=== PATIENT | male | born 1955 | race Caucasian/White ===

== ENCOUNTER 2021-07-17 06:55 | Observation (INO) ==
--- NOTE | 2021-06-14 15:29 | PAT Medication Instructions ---
Medication Instructions Date of Service June 14, 2021 Home Medications albuterol sulfate 90 mcg/actuation aerosol inhaler 2 inh INHALATION QID PRN cholecalciferol (vitamin D3) 10 mcg (400 unit) capsule (Vitamin D3) 20 mcg PO QPM fluticasone furoate 100 mcg-vilanterol 25 mcg/dose inhalation powder (Breo Ellipta) 1 inh INHALATION QAM furosemide 20 mg tablet 20 mg PO BID levothyroxine 200 mcg tablet 200 mcg PO QAM montelukast 10 mg tablet 10 mg PO QAM multivitamin 1 tab PO QAM naproxen sodium 220 mg capsule (Aleve) 440 mg PO BID PRN spironolactone 25 mg tablet 25 mg PO QAM testosterone 20.25 mg/1.25 gram (1.62 %) transdermal gel pump 2 pump TOPICAL QAM ASK your surgeon for instructions naproxen sodium 220 mg capsule (Aleve) 440 mg PO BID PRN DO NOT take the morning of surgery furosemide 20 mg tablet 20 mg PO BID montelukast 10 mg tablet 10 mg PO QAM multivitamin 1 tab PO QAM spironolactone 25 mg tablet 25 mg PO QAM testosterone 20.25 mg/1.25 gram (1.62 %) transdermal gel pump 2 pump TOPICAL QAM Take morning of surgery With a small sip of water, OTHERWISE NOTHING TO EAT OR DRINK AFTER MIDNIGHT: albuterol sulfate 90 mcg/actuation aerosol inhaler 2 inh INHALATION QID PRN (use if needed; please bring rescue inhaler with you to hospital day of surgery if possible) fluticasone furoate 100 mcg-vilanterol 25 mcg/dose inhalation powder (Breo Ellipta) 1 inh INHALATION QAM levothyroxine 200 mcg tablet 200 mcg PO QAM Take evening before surgery albuterol sulfate 90 mcg/actuation aerosol inhaler 2 inh INHALATION QID PRN (if needed) furosemide 20 mg tablet 20 mg PO BID Other Notes If you have any questions please call us at [phone] or [phone] or [phone] or [phone]
--- NOTE | 2021-06-18 10:09 | Anesthesiology Consultation ---
Date of Service June 18, 2021 History Surgery Operation Date: 07/17/21 09:25 Proposed Procedures p Right Total Knee Arthroplasty - Girma Fournier DO Height/Weight Height: 5 ft 9 in Weight: 138.346 kg Allergies Allergy/AdvReac Type Severity Reaction Status Date / Time No Known Allergies Allergy Verified 06/13/21 08:28 Medications Home Medications Medication Instructions Recorded Confirmed Last Taken albuterol sulfate 90 mcg/actuation 2 inh INHALATION QID PRN 06/13/21 06/13/21 Unknown aerosol inhaler cholecalciferol (vitamin D3) 10 20 mcg PO QPM 06/13/21 06/13/21 Unknown mcg (400 unit) capsule (Vitamin D3) fluticasone furoate 100 1 inh INHALATION QAM 06/13/21 06/13/21 Unknown mcg-vilanterol 25 mcg/dose inhalation powder (Breo Ellipta) furosemide 20 mg tablet 20 mg PO BID 06/13/21 06/13/21 Unknown levothyroxine 200 mcg tablet 200 mcg PO QAM 06/13/21 06/13/21 Unknown montelukast 10 mg tablet 10 mg PO QAM 06/13/21 06/13/21 Unknown multivitamin 1 tab PO QAM 06/13/21 06/13/21 Unknown naproxen sodium 220 mg capsule 440 mg PO BID PRN 06/13/21 06/13/21 Unknown (Aleve) spironolactone 25 mg tablet 25 mg PO QAM 06/13/21 06/13/21 Unknown testosterone 20.25 mg/1.25 gram 2 pump TOPICAL QAM 06/13/21 06/13/21 Unknown (1.62 %) transdermal gel pump Past Medical History Medical History Asthma Fluid retention Legs > on diuretics GERD (gastroesophageal reflux disease) Controlled Hypothyroidism Sleep apnea CPAP Patient denies h/o stroke, seizures, heart attack, heart failure, DM, HTN, blood clots or blood transfusions. Past Family History Family History Other No known health problems Past Surgical History Surgical History History of arthroscopy RIGHT SHOULDER History of colonoscopy History of herniorrhaphy History of repair of rotator cuff LEFT History of tooth extraction Social History Smoking Status: Current every day smoker Smoking cigarettes per day: 20 CIGS A DAY Do You Dip or Chew Tobacco: No Hx Alcohol Use: Yes Alcohol type: beer Alcohol Intake Frequency Comment: RARELY Hx Substance Use: No Review of Systems Patient denies chest pain, shortness of breath, dyspnea on exertion, snoring, witnessed apneas, reflux, fever, chills, cough, wheezing, or palpitations.
--- NOTE | 2021-06-18 10:31 | Anesthesiology Consultation ---
Date of Service June 18, 2021 Assessment & Plan (1) Encounter for pre-operative examination: - COVID screening: Per assessment on 06/18: No known COVID-19 positive contacts or current COVID-19 related symptoms. Travel screen negative. Patient yohannes ellington. Surgeon arranging preop COVID testing. Awaiting results. - Check BSG AM DOS - Post-operative course: Per OR booking comments, plan for SDA/needs bed. Patient seen at [facility] 06/18. He states that surgeon told him he would be going home the same day. 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 Confirmed with Ruth Ann at surgeon's office that patient will not be done through the outpatient pathway. She states she will contact patient to discuss with patient further. Chart Review Chart Review: Acceptable Risk for Surgery and Patient seen in Pre Admission Testing Teaching & Discussion Pre-Anesthesia Teaching/Discussion Notes: Instructed NPO after midnight before surgery,except medications with 15 cc of water. Medication instructions provided according to the [facility] guidelines. History Surgery Operation Date: 07/17/21 09:25 Proposed Procedures p Right Total Knee Arthroplasty - Girma Fournier DO Height/Weight Height: 5 ft 9 in Weight: 139.5 kg Allergies Allergy/AdvReac Type Severity Reaction Status Date / Time No Known Allergies Allergy Verified 06/13/21 08:28 Medications Home Medications Medication Instructions Recorded Confirmed Last Taken albuterol sulfate 90 mcg/actuation 2 inh INHALATION QID PRN 06/13/21 06/13/21 Unknown aerosol inhaler cholecalciferol (vitamin D3) 10 20 mcg PO QPM 06/13/21 06/13/21 Unknown mcg (400 unit) capsule (Vitamin D3) fluticasone furoate 100 1 inh INHALATION QAM 06/13/21 06/13/21 Unknown mcg-vilanterol 25 mcg/dose inhalation powder (Breo Ellipta) furosemide 20 mg tablet 20 mg PO BID 06/13/21 06/13/21 Unknown levothyroxine 200 mcg tablet 200 mcg PO QAM 06/13/21 06/13/21 Unknown montelukast 10 mg tablet 10 mg PO QAM 06/13/21 06/13/21 Unknown multivitamin 1 tab PO QAM 06/13/21 06/13/21 Unknown naproxen sodium 220 mg capsule 440 mg PO BID PRN 06/13/21 06/13/21 Unknown (Aleve) spironolactone 25 mg tablet 25 mg PO QAM 06/13/21 06/13/21 Unknown testosterone 20.25 mg/1.25 gram 2 pump TOPICAL QAM 06/13/21 06/13/21 Unknown (1.62 %) transdermal gel pump Past Medical History Medical History (Updated 06/18/21 @ 11:08 by Yris Lam) Asthma Stable Diabetes Diet controlled (per PCP office visit note) Fluid retention Legs > on diuretics GERD (gastroesophageal reflux disease) Controlled Hypothyroidism Morbid obesity Sleep apnea CPAP (compliant) Exercise / Class Metabolic Activity III < 4 Walking/Shop/Light housework (one FS (no CP, occ SOB)) Past Family History Family History Other No known health problems Past Surgical History Surgical History History of arthroscopy RIGHT SHOULDER History of colonoscopy History of herniorrhaphy History of repair of rotator cuff LEFT History of tooth extraction Past Anesthesia History No Family Hx of Anesthesia Complications and Other ("slow to wake" ) History of PONV No Hx of PONV and No Hx of Motion Sickness Social History Smoking Status: Current every day smoker Smoking cigarettes per day: 20 CIGS/DAY Do You Dip or Chew Tobacco: No Hx Alcohol Use: Yes Alcohol type: beer Alcohol Intake Frequency Comment: RARE Hx Substance Use: No Review of Systems Patient denies chest pain, shortness of breath, fever, chills, cough, wheezing, palpitations. Physical Exam Vital Signs VITALS BP 127/75 P 64 TEMP 98.6 SP02 95%RA RESP 16 PHYSICAL Full cervical extension range of motion. Full TMJ range of motion. TMD 3 finger breaths Mallampati Score 2 Dentition: edentulous Lungs: clear throughout to auscultation Cardiac: regular rate and rhythm, no murmurs noted Spine: normal Carotid arteries: negative bruit Extremities: no edema Lab Results Anesthesia Preop Results Results Anesthesia Widget: WBC 8.47 K/uL (4.8-10.8) 06/18/21 Hgb 16.1 g/dL (14.0-18.0) 06/18/21 Hct 48.4 % (42-52) 06/18/21 Plt 378 K/uL (130-400) 06/18/21 PT 10.9 Seconds (9.0-12.0) 06/18/21 PTT 32.3 Seconds (21.0-31.0) H 06/18/21 INR 1.0 (0.9-1.1) 06/18/21 HA1c 5.9 % (4.5-5.6) H 06/18/21 Urine Color Yellow 06/18/21 Urine Appearance Clear (Clear) 06/18/21 Urine pH 7.0 (4.5-7.5) 06/18/21 Urine Specific [place] 1.005 (1.000-1.030) 06/18/21 Urine Protein Negative (Negative) 06/18/21 Urine Glucose (UA) Negative (Negative) 06/18/21 Urine Ketones Negative (Negative) 06/18/21 Urine Blood Negative (Negative) 06/18/21 Urine Nitrite Negative (Negative) 06/18/21 Urine Bilirubin Negative (Negative) 06/18/21 Urine Urobilinogen Negative (Negative) 06/18/21 Urine Leukocyte Esterase Negative (Negative) 06/18/21 Blood Type B Positive 06/18/21 Antibody Screen NEGATIVE 06/18/21 Testing Electrocardiogram Date: 06/18/21 Findings: + NSR @ (63) Echocardiogram LVEF 55-60%. Mild LVH. Mild TR. Borderline pulmonary hypertension. Estimated PASP 39 mmHg. Dilated IVC, consistent with increased right atrial pressure. Stress Test Date: 12/07/18 Type: nuclear Normal regadenoson SPECT myocardial perfusion study, indicating that the probability of hemodynamically significant underlying CAD being present is low. Low probability of obstructive CAD, ischemia, infarct. 57% MPHR. Post-rest LVEF 78%. Other Testing CT Chest (05/28/21): Interval resolution of right lung base atelectasis (comparison study 01/02/2020). Mild fibrotic changes at the lung base. No suspicious pulmonary nodule. Patent large airways.
--- NOTE | 2021-06-28 08:17 | History & Physical Report ---
Date of Service June 28, 2021 date of surgery: 07/17/21 Procedure: Right Total Knee Arthroplasty Surgeon: Girma Fournier Assessment & Plan (1) Arthritis of right knee: Plan: Further care discussed with patient and at this point in time would like to proceed with a right total knee replacement. Plan on discharge will be home with home health physical therapy. DVT prophylaxiswith TEDs, SCDs and will also place on aspirin 81 mg p.o. b.i.d. for a month postop. Patient will have follow up appointment in our office two weeks post op for staple/suture removal and re-evaluation. Patient otherwise has no other questions or concerns. The risks and benefits have been discussed including, but not limited to, risk of infection, nerve injury, stiffness, loss of motion, failure to improve, etc. Reasonable outcomes and options of treatment were discussed. An explanation of appropriate alternatives to the procedure that may be advantageous were discussed and their risks and benefits, as well as the risks and benefits of not proceeding with treatment. I offered to answer any additional inquiries concerning the treatment involved. All the patient's questions were answered. The patient is agreeable, understanding of the treatment plan and alternatives, and wishes to proceed with the treatment plan. History of Present Illness Chief Complaint: Right knee pain Primary Care Provider: Philipp Fry MD Joao is a 65 year old who complains of right knee pain, presents for pre-op evaluation prior to a right total knee replacement by Dr Fournier at [facility]. He complains of pain, decreased range of motion, instability and stiffness in his right knee. His pain is rated at 8/10 and currently the patient states that the symptoms are moderate-severe. His pain is described as aching, sharp and throbbing. Prior NSAIDs include IBU and Aleve. Allergies Allergy/AdvReac Type Severity Reaction Status Date / Time No Known Allergies Allergy Verified 06/13/21 08:28 Home Medications Medication Instructions Recorded Confirmed Type albuterol sulfate 90 mcg/actuation 2 inh INHALATION QID PRN 06/13/21 06/13/21 History aerosol inhaler cholecalciferol (vitamin D3) 10 20 mcg PO QPM 06/13/21 06/13/21 History mcg (400 unit) capsule (Vitamin D3) fluticasone furoate 100 1 inh INHALATION QAM 06/13/21 06/13/21 History mcg-vilanterol 25 mcg/dose inhalation powder (Breo Ellipta) furosemide 20 mg tablet 20 mg PO BID 06/13/21 06/13/21 History levothyroxine 200 mcg tablet 200 mcg PO QAM 06/13/21 06/13/21 History montelukast 10 mg tablet 10 mg PO QAM 06/13/21 06/13/21 History multivitamin 1 tab PO QAM 06/13/21 06/13/21 History naproxen sodium 220 mg capsule 440 mg PO BID PRN 06/13/21 06/13/21 History (Aleve) spironolactone 25 mg tablet 25 mg PO QAM 06/13/21 06/13/21 History testosterone 20.25 mg/1.25 gram 2 pump TOPICAL QAM 06/13/21 06/13/21 History (1.62 %) transdermal gel pump Past Med/Surg History Medical History Asthma Stable Diabetes Diet controlled (per PCP office visit note) Fluid retention Legs > on diuretics GERD (gastroesophageal reflux disease) Controlled Hypothyroidism Morbid obesity Sleep apnea CPAP (compliant) Surgical History History of arthroscopy RIGHT SHOULDER History of colonoscopy History of herniorrhaphy History of repair of rotator cuff LEFT History of tooth extraction Family History Other No known health problems Social History Smoking Status: Current every day smoker Cigarettes Per Day: 20 CIGS/DAY; Second Hand Exposure: No; Hx Alcohol Use: Yes Alcohol type: beer Hx Substance Use: No Preferred Language: Turkmen Communication Ability: Effective Clearance Center Manager Required: No Beliefs That Will Affect Care: None Current Living Situation: Spouse current occupational status: employed Feels Safe at Home: Yes Assistive Devices: Glasses Review of Systems Review of Systems: All systems reviewed & are unremarkable except as noted in HPI & below Constitutional: no fever, no chills and no sweats Respiratory: no cough and no dyspnea Cardiovascular: no chest pain, no dyspnea and no orthopnea Gastrointestinal: no abdominal pain, no nausea and no vomiting Musculoskeletal: as per Subjective / HPI Physical Exam Physical Exam: HT: 5ft 9in WT: 139.5kg Constitutional: WD/WN, vitals as above no acute distress Respiratory: normal respiratory effort, lungs clear to auscultation no respiratory distress, no labored breathing and does not use accessory muscles Cardiovascular: RRR, no murmur, no edema Gastrointestinal (Abdomen): normal bowel sounds, soft, nontender, no hepatosplenomegaly Musculoskeletal: Knee: + knee abnormal to inspection (RIGHT KNEE: ), + effusion (+1 effusion), + limited ROM of knee (ROM 0/3/110), + knee ROM with crepitation, + joint line tenderness (medial joint line) and + Fareed's sign positive; no deformity, no skin erythema, no ecchymosis, no valgus laxity, no varus laxity, anterior drawer test negative, Petey's sign negative and pivot shift test negative Results & Data Results & Data ([facility]) Diagnostic Findings Right Knee X-ray: Right knee series showing advanced degenerative changes to the right knee, narrowing of the medial compartment and patello-femoral joint with patellar spurring noted, findings showing joint space narrowing of the medial compartment and patello-femoral joint, osteophyte formation and subchondral sclerosis noted. overall varus alignment. no acute bony pathology noted.
[~2021-07-17 06:55] MED LIST: ACETAMINOPHEN 500 MG TAB PO SCH; BUPIVACAINE 0.5 % 5 MG/1 ML PF 10ML VIAL ONE; CeleBREX 200 MG CAP PO SCH; FAMOTIDINE 20 MG TAB PO SCH; GABAPENTIN 300 MG CAP PO SCH; LR 500ML BOLUS, THEN 15ML/HR IV SCH; METOCLOPRAMIDE HCL 10 MG TABLET PO SCH; ROPIVACAINE 0.5% 5 MG/ML 30 ML VIAL ONE; ROPIVACAINE 0.5% HCL/PF 150 MG, BUPIVACAINE 0.75% MPF 20 ML, EPINEPHrine 30MG/30ML (OR ... INSTIL SCH; TRANEXAMIC ACID 1,000 MG **IV Intra-op IV SCH; TRANEXAMIC ACID 1,000 MG **IV Pre-op IV SCH; dexAMETHasone 4 MG TAB PO SCH; oxyCODONE HCL 10 MG TABCR (OxyCONTIN) PO SCH
[2021-07-17] MEDS ORDERED: MIDAZOLAM HCL 1 MG/ML 2ML VIAL ONE ×3 (07:55→09:59)
[2021-07-17] MEDS ORDERED: PROPOFOL IV EMULSION 10 MG/ML 20 ML VIAL IV ONE (07:59)
--- NOTE | 2021-07-17 08:46 | History & Physical Bridge Note ---
Date of Service July 17, 2021 History & Physical Bridge Note I have examined the patient, reviewed the History & Physical and in the interval since the performance of the History & Physical I have noted the following changes of clinical significance: no changes noted
[2021-07-17] MEDS ORDERED: ORTHO JOINT ANESTHETIC ONE (09:10)
[2021-07-17] MEDS ORDERED: ATROPINE SULFATE 0.1 MG/ML 10ML SYR IV PRN (09:25)
[2021-07-17] MEDS ORDERED: ePHEDrine sulfate 50 MG/ML AMP IV PRN (09:25)
[2021-07-17] MEDS ORDERED: HYDROmorphone INJ 2 MG/ML SYR/VIAL IV PRN (09:25)
[2021-07-17] MEDS ORDERED: fentaNYL citrate 100 MCG/2 ML VIAL IV PRN (09:25)
[2021-07-17] MEDS ORDERED: KETAMINE 50 MG/5 ML SYRINGE ONE (10:05)
--- NOTE | 2021-07-17 11:04 | Operative Report ---
Post Operative Report Pre & Post Diagnosis Operation Date: 07/17/21 09:20 Pre-Op Diagnosis: Right Knee Osteoarthritis Post-Op Diagnosis: Right Knee Osteoarthritis with morbid obesity BMI 44.3 I identified the patient and participated in the time-out.: Yes Procedure Operation Date: 07/17/21 09:20 Actual Procedures p Right Total Knee Arthroplasty(Right) utilizing [employer] Nephew journey 2 patient matched total knee arthroplasty size femur 6 tibia 6 insert 13 constrained polythirty 5 oval Girma Fournier DO Surgeon Girma Fournier DO Data Solutions Architect NANCY Brown Estimated Blood Loss 10 Findings Consistent with Post-Op Diagnosis Patient presents with severe end-stage tricompartmental degenerative joint disease right knee marginal osteophyte subchondral sclerosis eburnated [id number] with moderate to large effusion knee after failed attempted conservative management patient has eburnated [id number] with Specimens Bone and cartilage Anesthesia Type MAC Spinal Regional Complications none Disposition Accompanied Patient To Recovery: No Disposition: Recovery Room Indications Patient presents after failed attempted conservative management clinic physical therapy anti-inflammatories relative rest activity modification corticosteroid injection viscosupplementation above intraoperative findings were noted Description of Procedure The patient is wearing 36.1 kgwith a BMI of 44.3 The patient's habitus did contribute to significant technical difficulty requiring extra time. Additional help was necessary in order to position the patient safely. The use of specialized (longer, deeper) retractors and/or instruments were needed. Due to this, the procedure [id number] proper prepping and draping of the Right lower extremity anterior midline incision was made over the region of the extensor extensor mechanism after meticulous hemostasis was obtained and maintained in subcutaneous tissues a medial parapatellar incision was made The patella was subluxed lateralward the medial lateral gutter were cleaned from any hypertrophic synovitis and scar tissue of the distal femoral block was placed and the distal femoral osteotomy cut was made subsequently the chamfers anterior and posterior osteotomy cuts were made utilizing the 4-in-1 block the tibia was subsequently subluxed anteriorward medial and ateral meniscal remnants were excised in their entirety remnants of the anterior and posterior cruciate ligaments were excised in their entirety excellent exposure of the proximal tibia was obtained the tibial osteotomy guide was placed on the proximal tibial osteotomy cut was made once again the knee was irrigated with copious amounts of sterile saline solution the patella was subsequently everted lateralward thickened scar tissue around the patella was removed the patella was subsequently cut utilizing a freehand technique and was drilled prepared for final preparation and placement of patella socially flexion-extension gaps were checked and the equal and symmetric trials were placed to the appropriate femoral and tibial trials with poly-spacer being placed for equal flexion and extension gaps and full range of motion including extension to 0 and flexion to 140 the trial components after having been taken to recovery range of motion was subsequently removed meticulous hemostasis was obtained and maintained subsequently a knee block injection of joint cocktail including ropivacaine 0.5% 150 mg. Bupivacaine 0.5% epinephrine 1-200,030 mL's toradol 30 mg dexamethasone 4 mg ketamine 10 mg clonidine 100 micrograms normal saline solution 30 mg was infiltrated into the soft tissues of the posterior knee medial lateral gutters and periosteal synovium special attention was paid to protect neurovascular structures at all times subsequently trial components having been removed the knee was irrigated with sterile saline solution. debris was removed the proximal tibia was subsequently prepared and was made ready for the placement of the tibial component tibial component was also cemented and tamped into position the femoral component was subsequently placed and cemented in the position the patellar component was subsequently cemented in position because hemostasis once again obtained and maintained wound having been thoroughly irrigated with debridement and debridement lavage was performed as well as a medial parapatellar incision closed with #1 Vicryl in interrupted fashion subcutaneous was closed with #2 Vicryl skin was closed with skin clips. PA-C was necessary for prepping and drapping as well as wound closure of deep fascia Sub cutaneous tissue and skin and was necessary for the case. A sterile compressive dressing was placed patient was taken to recovery in stable condition of report dictated by Shantanu I attest to the content of the Intraoperative Record and any orders documented therein. Any exceptions are noted below.Due to the complex nature of the procedure, the entire surgery was performed with the operational assistance of MICHELA Brown. The railway yard assistant, under direct supervision, was involved in the actual performance of all aspects of the surgical procedure including hemostasis, tissue retraction and incision, instrument management, patient positioning, and wound closure. minutes longer than the standard total knee arthroplasty." I attest to the content of the Intraoperative Record and any orders documented therein. Any exceptions are noted below.
--- NOTE | 2021-07-17 12:18 | XRay Report ---
XR knee RT 1 or 2V routine HISTORY: 65 years-old Male Surgical Post Op right knee total joint arthroplasty COMPARISON: None TECHNIQUE: 2 views of the right knee FINDINGS: Right knee total joint arthroplasty with patellar resurfacing. Surgical drainage catheter in place. E xpected postoperative soft tissue swelling with deep tissue air. No acute fracture or unexpected opaq ue foreign body. IMPRESSION: Total joint arthroplasty with expected postoperative changes. ACT 112: Negative or not required by law. The above report was generated using voice recognition software. It may contain grammatical, syntax o r spelling errors. Electronically signed by: Aneudy Villa M.D. 07/17/2021 12:17 PM
[2021-07-17] MEDS ORDERED: diphenhydrAMINE Capsule 25 MG CAP PO PRN (12:38)
[2021-07-17] MEDS ORDERED: ONDANSETRON INJ 2 MG/ML 2 ML VIAL IV PRN (12:38)
[2021-07-17] MEDS ORDERED: oxyCODONE HCL IR 5 MG TAB (IMMEDIATE RELEASE) PO PRN (12:38)
[2021-07-17] MEDS ORDERED: NALOXONE HCL 0.4 MG/1 ML VIAL/CARP IV PRN (12:38)
[2021-07-17] MEDS ORDERED: bisacodyL 10 MG SUPP PR PRN (12:38)
[2021-07-17] MEDS ORDERED: MAGNESIUM HYDROXIDE SUSP 30 ML UDC PO PRN (12:38)
[2021-07-17] MEDS ORDERED: METOCLOPRAMIDE HCL INJ 5 MG/ML 2 ML VIAL IV PRN (12:38)
[2021-07-17] MEDS ORDERED: HYDROmorphone INJ 1 MG/ML SYRINGE IV PRN (12:38)
[2021-07-17] MEDS ORDERED: ALBUTEROL HFA 8 GM INHALER INH PRN (12:38)
--- NOTE | 2021-07-17 12:53 | Anesthesiology Progress Note ---
Date of Service July 17, 2021 Anesthesia Post Procedure Vital Signs Vital Signs: Temp Pulse Pulse Resp BP Pulse Ox 07/17/21 12:45 59 L 21 118/58 L 94 07/17/21 12:35 63 22 117/52 L 95 07/17/21 12:25 36.9 C 55 L 20 98/66 L 95 07/17/21 12:15 58 L 15 109/55 L 94 07/17/21 12:05 68 21 117/64 95 07/17/21 11:55 72 23 104/71 91 07/17/21 11:46 76 20 113/58 L 95 07/17/21 11:39 36.2 C L 78 15 104/80 98 07/17/21 07:24 36.7 C 66 20 158/68 H 20 L Pain Intensity Left Shoulder: Pain Intensity: 8 Transfer of Care Handoff Completed per policy Notes Mental Status: alert / awake / arousable and participated in evaluation Patient Amnestic to Procedure: Yes Nausea / Vomiting: adequately controlled Pain: adequately controlled Airway Patency, RR, SpO2: stable & adequate BP & HR: stable & adequate Hydration State: stable & adequate Neuraxial Anesthesia: was administered and sensory block is resolving Anesthetic Complications: no major complications apparent
[2021-07-17] MEDS: KETOROLAC TROMETHAMINE 15 MG/ML VIAL IV SCH ×3 (16:31→23:32)
[2021-07-17] MEDS: ceFAZolin 2000MG 2,000 MG/15 ML SYR IV SCH (16:46)
[2021-07-17] MEDS: ACETAMINOPHEN 500 MG TAB PO SCH ×2 (16:46→21:21)
[2021-07-17] MEDS: SODIUM CHLORIDE 0.9% 1000ML 1,000 ML IV SCH (17:40)
[2021-07-17] MEDS: DOCUSATE SODIUM 100 MG CAP PO SCH (20:17)
[2021-07-17] MEDS: ASPIRIN 81 MG ECTAB PO SCH (20:17)
[2021-07-17] MEDS ORDERED: CHOLECALCIFEROL 1,000 UNITS 25 MCG TAB PO SCH (21:00)
[2021-07-17] MEDS ORDERED: SENNA 8.6 MG TAB PO SCH (21:00)
[2021-07-18] MEDS: ceFAZolin 2000MG 2,000 MG/15 ML SYR IV SCH (00:58)
[2021-07-18] MEDS: SODIUM CHLORIDE 0.9% 1000ML 1,000 ML IV SCH (04:36)
[2021-07-18] MEDS: KETOROLAC TROMETHAMINE 15 MG/ML VIAL IV SCH (05:46)
[2021-07-18] MEDS: ACETAMINOPHEN 500 MG TAB PO SCH (05:46)
[2021-07-18] MEDS: CeleBREX 200 MG CAP PO SCH ×2 (05:48→07:57)
[2021-07-18] MEDS ORDERED: LEVOTHYROXINE SODIUM 200 MCG TABLET PO SCH (06:30)
[2021-07-18 06:45] LABS: Hematocrit (blood only) 42.7 % (42-52); Hemoglobin 14.6 g/dL (14.0-18.0); Mean Corpuscular Hemoglobin 29.9 pg (25-34); Mean Corpuscular Hgb Conc 34.2 g/dL (32-36); Mean Corpuscular Volume 87.5 fL (80-100); Mean Platelet Volume 9.2 fL (7.4-10.4); Platelet Count 345 K/uL (130-400); RDW Coefficient of Variation 13.5 % (11.5-14.5); RDW Standard Deviation 43.1 fL (36.4-46.3); Red Blood Count 4.88 M/uL (4.7-6.1); White Blood Count 18.61 K/uL (4.8-10.8)
--- NOTE | 2021-07-18 07:03 | Orthopedic Progress Note ---
Date of Service July 18, 2021 Assessment & Plan (1) History of total right knee replacement: Plan: POD #1 s/p Right TKA pt/ot dvt proph with MIKE/SCD/ASA plan for d/c home with HHPT after PT today Admission and Anticipated Discharge Date Admission Date: July 17, 2021 Subjective POD #1 s/p Right TKA Review of Systems Constitutional: no fever, no chills and no sweats Respiratory: no cough and no dyspnea Cardiovascular: no chest pain and no dyspnea Gastrointestinal: no abdominal pain, no nausea and no vomiting Physical Exam Physical Exam: Vital Signs Temp Pulse Pulse Resp BP BP Pulse Ox 07/18/21 03:00 36.5 C 55 L 108/65 94 07/17/21 23:11 36.6 C 61 20 120/69 95 07/17/21 19:43 36.4 C L 62 18 114/65 95 07/17/21 18:00 64 18 111/62 95 07/17/21 17:00 36.8 C 61 18 112/64 95 07/17/21 16:15 36.3 C L 58 L 20 125/54 L 95 07/17/21 16:00 36.8 C 70 18 116/69 94 07/17/21 15:45 67 21 116/62 93 07/17/21 15:15 59 L 24 121/58 L 93 07/17/21 14:45 63 24 118/62 94 07/17/21 14:15 58 L 24 115/59 L 95 07/17/21 14:00 67 17 126/67 96 07/17/21 13:45 55 L 22 124/69 94 07/17/21 13:30 54 L 24 115/63 94 07/17/21 13:15 72 24 132/61 93 07/17/21 13:00 52 L 19 118/55 L 93 07/17/21 12:45 59 L 21 118/58 L 94 07/17/21 12:35 63 22 117/52 L 95 07/17/21 12:25 36.9 C 55 L 20 98/66 L 95 07/17/21 12:15 58 L 15 109/55 L 94 07/17/21 12:05 68 21 117/64 95 07/17/21 11:55 72 23 104/71 91 07/17/21 11:46 76 20 113/58 L 95 07/17/21 11:39 36.2 C L 78 15 104/80 98 07/17/21 07:24 36.7 C 66 20 158/68 H 20 L Intake and Output 07/17/21 07/18/21 07/18/21 22:59 06:59 14:59 Intake Total 1497.5 / 3597.5 1000 / 3597.5 Output Total 125 / 300 165 / 300 Balance 1372.5 / 3297.5 835 / 3297.5 Intake: IV 172.5 / 1272.5 1000 / 1272.5 Sodium Chlorid e 0.9% 1000ML 1, 1000 / 1000 000 ml @ 100 m ls/hr IV .Q10H [facility] Rx#:[id number] Tranexamic Aci d / 0.7% NaCl 1, 100 / 100 000 mg In 100 ml @ 600 mls/hr IV TODAY@0600 [facility] Rx#:[id number] ceFAZolin 3000 MG 72.5 ml @ 130 72.5 / 72.5 mls/hr IV PREO P [facility] Rx#: [id number] IV Perioperative 350 / 1350 Oral 975 / 975 Output: Drain Output 125 / 290 165 / 290 Right Knee Hem ovac 125 / 290 165 / 290 Other: # Unmeasured Voi ds 1 Weight 136.1 kg Musculoskeletal: Right Leg: NVDI, calf SNT, negative zulema sign. DP palpable, able to wiggle toes/ankle movement without difficulty. dressing clean dry and intact. Results & Data ([facility]) Vital Signs (Past 12 Hours) Vital Signs Temp Pulse Resp BP BP Pulse Ox 07/18/21 03:00 36.5 C 55 L 108/65 94 07/17/21 23:11 36.6 C 61 20 120/69 95 07/17/21 19:43 36.4 C L 62 18 114/65 95 Laboratory Results Laboratory Results WBC 18.61 K/uL (4.8-10.8) H 07/18/21 05:34 RBC 4.88 M/uL (4.7-6.1) 07/18/21 05:34 Hgb 14.6 g/dL (14.0-18.0) 07/18/21 05:34 Hct 42.7 % (42-52) 07/18/21 05:34 MCV 87.5 fL (80-100) 07/18/21 05:34 MCH 29.9 pg (25-34) 07/18/21 05:34 MCHC 34.2 g/dL (32-36) 07/18/21 05:34 RDW Std Deviation 43.1 fL (36.4-46.3) 07/18/21 05:34 RDW Coeff of Mykel 13.5 % (11.5-14.5) 07/18/21 05:34 Plt Count 345 K/uL (130-400) 07/18/21 05:34 MPV 9.2 fL (7.4-10.4) 07/18/21 05:34 POC Glucose 101 mg/dl (70-99) H 07/17/21 07:28 SARS-CoV-2, RNA, NAAT NEGATIVE (NEGATIVE) 07/17/21 07:38 Impressions Knee X-Ray 07/17/21 11:41 XR knee RT 1 or 2V routine HISTORY: 65 years-old Male Surgical Post Op right knee total joint arthroplasty COMPARISON: None TECHNIQUE: 2 views of the right knee FINDINGS: Right knee total joint arthroplasty with patellar resurfacing. Surgical drainage catheter in place. Expected postoperative soft tissue swelling with deep tissue air. No acute fracture or unexpected opaque foreign body. IMPRESSION: Total joint arthroplasty with expected postoperative changes. ACT 112: Negative or not required by law. The above report was generated using voice recognition software. It may contain grammatical, syntax or spelling errors. Electronically signed by: Aneudy Villa M.D. 07/17/2021 12:17 PM
[2021-07-18 07:06] LABS: BUN Creatinine Ratio 17.9 (10-20); Calcium 8.8 mg/dl (8.5-10.1); Creatinine Clr Calc Pharmacy 103.4 ml/min; Est GFR (African American) 95.6 ml/min; Est GFR (Non-African American) 82.5 ml/min; Potassium 4.5 mmol/L (3.5-5.1)
--- NOTE | 2021-07-18 07:35 | Discharge Summary ---
Date of Service date of discharge: July 18, 2021 date of admission: 07/17/21 Admission HPI Per Admitting Provider Joao is a 65 year old who complains of right knee pain, presents for pre-op evaluation prior to a right total knee replacement by Dr Fournier at [facility]. He complains of pain, decreased range of motion, instability and stiffness in his right knee. His pain is rated at 8/10 and currently the patient states that the symptoms are moderate-severe. His pain is described as aching, sharp and throbbing. Prior NSAIDs include IBU and Aleve. Principal Diagnosis right knee arthritis Discharge Exam Vital Signs Temp Pulse Pulse Resp BP BP Pulse Ox 07/18/21 03:00 36.5 C 55 L 108/65 94 07/17/21 23:11 36.6 C 61 20 120/69 95 07/17/21 19:43 36.4 C L 62 18 114/65 95 07/17/21 18:00 64 18 111/62 95 07/17/21 17:00 36.8 C 61 18 112/64 95 07/17/21 16:15 36.3 C L 58 L 20 125/54 L 95 07/17/21 16:00 36.8 C 70 18 116/69 94 07/17/21 15:45 67 21 116/62 93 07/17/21 15:15 59 L 24 121/58 L 93 07/17/21 14:45 63 24 118/62 94 07/17/21 14:15 58 L 24 115/59 L 95 07/17/21 14:00 67 17 126/67 96 07/17/21 13:45 55 L 22 124/69 94 07/17/21 13:30 54 L 24 115/63 94 07/17/21 13:15 72 24 132/61 93 07/17/21 13:00 52 L 19 118/55 L 93 07/17/21 12:45 59 L 21 118/58 L 94 07/17/21 12:35 63 22 117/52 L 95 07/17/21 12:25 36.9 C 55 L 20 98/66 L 95 07/17/21 12:15 58 L 15 109/55 L 94 07/17/21 12:05 68 21 117/64 95 07/17/21 11:55 72 23 104/71 91 07/17/21 11:46 76 20 113/58 L 95 07/17/21 11:39 36.2 C L 78 15 104/80 98 07/17/21 07:24 36.7 C 66 20 158/68 H 20 L Intake and Output 07/17/21 07/18/21 07/18/21 22:59 06:59 14:59 Intake Total 1497.5 / 3597.5 1000 / 3597.5 Output Total 125 / 300 165 / 300 Balance 1372.5 / 3297.5 835 / 3297.5 Intake: IV 172.5 / 1272.5 1000 / 1272.5 Sodium Chloride 0.9% 1000ML 1, 1000 / 1000 000 ml @ 100 mls/hr IV .Q10H [facility] Rx#:[id number] Tranexamic Acid / 0.7% NaCl 1, 100 / 100 000 mg In 100 ml @ 600 mls/hr IV TODAY@0600 [facility] Rx#:[id number] ceFAZolin 3000MG 72.5 ml @ 130 72.5 / 72.5 mls/hr IV PREOP [facility] Rx#: [id number] IV Perioperative 350 / 1350 Oral 975 / 975 Output: Drain Output 125 / 290 165 / 290 Right Knee Hemovac 125 / 290 165 / 290 Other: # Unmeasured Voids 1 Weight 136.1 kg Constitutional WD/WN, vitals as above no acute distress Respiratory normal respiratory effort, lungs clear to auscultation no respiratory distress, no labored breathing and does not use accessory muscles Cardiovascular RRR, no murmur, no edema Gastrointestinal (Abdomen) normal bowel sounds, soft, nontender, no hepatosplenomegaly Musculoskeletal right knee: NVDI, calf SNT, negative zulema sign. DP palpable, able to wiggle toes/ankle movement without difficulty. ULISES dressing clean dry and intact. Discharge Data Allergies Allergy/AdvReac Type Severity Reaction Status Date / Time No Known Allergies Allergy Verified 07/17/21 07:19 Consultations 07/17/21 12:38 Consult Hospitalist Routine Procedures Performed Operation Date: 07/17/21 09:20 Actual Procedures p Right Total Knee Arthroplasty(Right) - Girma Fournier DO Ordered Studies 07/17/21 05:00 US - OR guided needle placemen Routine Hospital Course (1) History of total right knee replacement: POD #1 s/p Right TKA pt/ot dvt proph with MIKE/SCD/ASA plan for d/c home with HHPT after PT today Total Time Total Time Spent Total Time Spent (In Minutes): 20 Discharge Plan Discharge Items Patient Disposition: Home - Home Health Services Reason For Visit: Right Knee Osteoarthritis Discharge Diagnosis: RIGHT TOTAL KNEE REPLACEMENT Activity: Per Instructions section Lifting: Wait until after follow-up appointment Weightbearing Comment: WBAT WITH WALKER Non-emergency contact: Surgeon Call non-emergency contact if: you have any medication questions, your temperature is above 101, your wound has increased redness, your wound has increased drainage and your wound pain has increased Follow-up/Referrals: Philipp Fry MD [Primary Care Provider] - Diet: Regular Addtl Attending Provider Instructions: ACTIVITY RECOMMENDATIONS: SELF CARE INSTRUCTIONS AFTER TOTAL KNEE REPLACEMENT A. You may need to continue a physical therapy program after discharge from the hospital. There are several options available to you. Your doctor will assist you in selecting the best one for you. 1. An out-patient facility 2 to 3 times a week for therapy or home therapy. 2. Continue working on all exercises taught to you in the hospital. Your goals should be to increase bending of your knee to 90 degrees and beyond and to fully straighten your knee. B. You may progress at your own pace from walking with a walker or crutches to a cane; then to no assistive devices. C. Make walking a part of your daily routine. Be up as much as comfortable with rest periods throughout the day. Rest with leg elevation is very important. Use the ice wrap frequently for the first 3-4 weeks. D. There are no restrictions on activities. You may ride in a car, shop, participate in pharmacy innovation assistant and all social activities. E. Wear the long elastic stockings (MIKE hose) 20 hours a day for 2 weeks after surgery. They can be removed several times a day for laundering and for a bath. F. You may shower, no tub baths until cleared by your doctor. SPECIAL CARE INSTRUCTIONS: VERY IMPORTANT TO READ AND REVIEW A. There are a few signs you need to watch for after you are home. Call [facility] if you notice any of the followin. Increased severe knee pain. Some pain is expected especially when you exercise. 2. Increased swelling in your leg or knee; pain or swelling of the calf muscle in either lower leg. 3. Any fluid drainage from the incision. 4. Shortness of breath or chest pain. B. Please call [facility] at if you have any concerns or questions about your operation or recovery. The doctor or his nurse will return your call promptly. C. You must take antibiotics before dental work, bladder, bowel or other surgery. Your doctor will provide you with a permanent care to carry describing this precaution. IMPORTANT: * REMEMBER TO TAKE ASPIRIN, 81 MG, TWICE DAILY FOR 4 WEEKS UNLESS OTHERWISE DIRECTED. THIS IS YOUR BLOOD THINNER. * HIGH RISK PATIENTS MAY BE PRESCRIBED A STRONGER BLOOD THINNER. THIS WILL BE PROVIDED AT DISCHARGE. * CALL IF INCREASED PAIN, REDNESS, DRAINAGE OR FEVER GREATER THAT 101. * WEAR MIKE HOSE 20 HOURS PER DAY FOR 2 WEEKS. * ULISES Dressing- This is a large suction dressing covering your incision. This will help pull any excess drainage from the wound and allow your incision to heal properly. You may shower with this if you can keep the unit outside of the shower. If any bleeding or leakage is noted please call your doctor's office. This will remain on your incision for 7 days and then should be removed. This can be done yourself or by the home nursing staff if applicable. The entire unit is disposable once removed. Once removed, keep incision clean and dry. If redness or drainage is noted, please call your surgeon. DERMABOND Prineo- This is a mesh tape dressing that is covered with glue. It should remain in place until the incision is properly healed, usually 10-14 days. This dressing is designed to naturally slough off. You may trim the excess mesh tape as it peels off. Incision may be briefly wet in a shower. Dry immediately by blotting with a clean, dry towel. Do not bath or swim until instructed by your doctor. Do not scratch, rub, or pick at the dressing. Do not apply any topical ointments or lotions until dressing is completely removed and/or instructed by your doctor. There may be a small piece of suture material at one end of your incision. Do not pull or trim this. If it is bothersome or catching on clothing, you may cover it with a band-aid. IF INCISION IS LEAKING THROUGH DRESSING, CALL THE OFFICE . FOLLOW UP VISIT: If appointment is not already scheduled: Please call [facility] to make a follow-up appointment for 2 weeks after your surgery at . Pending Studies at Discharge: No Stand-Alone Forms: My [facility] [employer], Smoking Cessation Medications and DC Order Prescriptions: New celecoxib [Celebrex] 200 mg Capsule 200 mg PO BID 30 Days Qty: 60 RF: 0 aspirin 81 mg Tablet,Delayed Release (Dr/Ec) 81 mg PO BID 30 Days Qty: 60 RF: 0 acetaminophen [Tylenol Extra Strength] 500 mg Tablet 1,000 mg PO Q8 21 Days Qty: 126 RF: 0 oxycodone 5 mg Tablet 5 - 10 mg PO Q6H PRN (Reason: pain) Qty: 30 RF: 0 docusate sodium 100 mg Capsule 100 mg PO BID 10 Days Qty: 20 RF: 0 cefadroxil 500 mg capsule 500 mg PO BID 14 Days Qty: 28 RF: 0 Continued multivitamin Tablet 1 tab PO QAM RF: 0 spironolactone 25 mg Tablet 25 mg PO QAM RF: 0 montelukast 10 mg Tablet 10 mg PO QAM RF: 0 levothyroxine 200 mcg Tablet 200 mcg PO QAM RF: 0 furosemide 20 mg Tablet 20 mg PO BID RF: 0 cholecalciferol (vitamin D3) [Vitamin D3] 10 mcg (400 unit) Capsule 20 mcg PO QPM RF: 0 testosterone 20.25 mg/1.25 gram (1.62 %) Gel In Metered-Dose Pump 2 pump TOPICAL QAM RF: 0 Breo Ellipta 100-25 mcg/dose Blister With Device 1 inh INHALATION QAM RF: 0 albuterol sulfate 90 mcg/actuation Hfa Aerosol Inhaler 2 inh INHALATION QID PRN (Reason: Wheezing) RF: 0 Discontinued naproxen sodium [Aleve] 220 mg Capsule 440 mg PO BID PRN (Reason: Pain) RF: 0 Discharge Orders: Discharge Order (Routine); Ordered 07/18/21 Ordered By: Philipp Alberts Admission Data Admit Date/Time: 07/17/21 11:41 Attending Provider: Girma Fournier Admit Provider: Girma Fournier Primary Care Provider: Philipp Fry Other Providers: Destin Dooley ; Naomi Ray ; Bc Mccullough ; Pilo Guerin ; Girma Richardson ; Mj Brantley ; Power Newsome ; Sarita John ; Greg Abad ; Annemarie Taylor ; Kavin Persaud ; Rosa Isela Adams ; Nunu Andrade ; Skyler Worley ; Naomi Huerta ; Joe Goodman ; Raysa Lazo ; Travis Alva ; Bc Crowley ; Kayla Juarez ; Jolene Allen ; Shawn Sanchez ; Lyn Lux ; Robb Clark ; Jose Cedeño ; Toney Tee ; Charlie Gunn ; Vick Cross.
[2021-07-18] MEDS: ASPIRIN 81 MG ECTAB PO SCH (07:57)
[2021-07-18] MEDS: DOCUSATE SODIUM 100 MG CAP PO SCH (07:57)
[2021-07-18] MEDS ORDERED: SPIRONOLACTONE 25 MG TAB PO SCH (09:00)
[2021-07-18] MEDS ORDERED: MULTIVITAMIN TAB PO SCH (09:00)
[2021-07-18] MEDS ORDERED: FLUTICASONE/VILANTEROL 100/25MCG 14 PUFFS/INHALER INH SCH (09:00)
--- NOTE | 2021-07-18 13:04 | Communication Note ---
Date of Service: July 18, 2021 Patient is medically stable for discharge. No medical changes needed on discharge. Given medical stability, Hospital Medicine team will sign off. Please re-consult with any questions or concerns. Thank you for letting us assist in the care of this patient!
[2021-07-18] MEDS ORDERED: MONTELUKAST SODIUM 10 MG TABLET PO SCH (21:00)
== END 2021-07-18 13:36 | disposition home health service (06) ==
LOC: PACUINP 06:55 → ASU 06:55 → 3E 16:33